=== PATIENT | male | born 1970 | race Caucasian/White ===

== ENCOUNTER 2020-02-07 07:00 | Day surgery (SDC) | payer OTHER ==
[~2020-02-07] VITALS: Ht 177.8 cm; Wt 93.0 kg
[~2020-02-07 07:00] MED LIST: CIPRO500 MG PO; CIPROFLOXACIN500 MG PO; FISH OIL 1,2001 EAC1 PO; FLAGYL250 MG PO; FLAGYL500 MG PO; PERCOCET 7.5-31 EACH PO; SIMVASTATIN40 MG PO
[2020-02-07] MEDS ORDERED: ULTRAM50 MG PO (10:17)
--- NOTE | 2020-02-08 10:17 | OR ---
[facility] [address], [place] [address] Signed DATE OF OPERATION: 02/07/2020 SURGEON: Lee Maier MD PREOPERATIVE DIAGNOSIS: Retained painful hardware, right knee, both tibia and femur. POSTOPERATIVE DIAGNOSIS: Retained painful hardware, right knee, both tibia and femur. PROCEDURE: Removal of retained hardware. ANESTHESIA: General. SPECIMENS/COMPLICATIONS: There were no specimens or complications. The hardware was processed and given to the patient per his request. WHAT WAS DONE: The patient was taken to the operating room. After anesthesia was induced and the airway secured, the patient was positioned, prepped and draped in a routine sterile fashion. We could palpate the screw on the tibial side. After confirming the localization with fluoroscopy, a small incision was made over the head of the screw. Skin was divided sharply. Subcutaneous tissues were bluntly spread. We did have to use a small osteotome to excavate the rest of the screw head and the washer. We were then able to back the screw out and remove the washer without any difficulty. The wound was irrigated and closed in a standard fashion. We then used fluoroscopy to localize the transfix pin over the proximal lateral femur. We then made a small incision over this area and divided the skin and subcutaneous tissue. We split about 1 cm of the iliotibial band and we were able to identify the end of the screw. Again, the transfix pin was covered with bone that had to be evacuated with a small osteotome. We then were able to grab it and removed it without difficulty. The wound was gently irrigated. The iliotibial band was closed and then routine wound closure was accomplished. A sterile dressing was applied, and he was taken to recovery room where he arrived in stable condition. Counts were correct and antibiotic protocols were followed. Electronically Signed By: LEE MAIER MD 02/08/20 1017 PATIENT NAME: NOMAN CARRASCO OPERATIVE REPORT DATE OF : 66 REPORT #: [id number] PHYSICIAN: LEE MAIER MD PCP: DENG KRAUSE MD REPORT IS CONFIDENTIAL AND NOT TO BE RELEASED WITHOUT AUTHORIZATION [address] [address] Signed Lee Maier MD WFB/MODL /[id number] Copies: ~ Electronically Signed By: LEE MAIER MD 02/08/20 1017 PATIENT NAME: DANILONOMAN OPERATIVE REPORT DATE OF : 66 REPORT #: [id number] PHYSICIAN: LEE MAIER MD PCP: DENG KRAUSE MD REPORT IS CONFIDENTIAL AND NOT TO BE RELEASED WITHOUT AUTHORIZATION
== END 2020-02-07 10:50 | disposition home or self-care (01) ==
LOC: DS 07:00 → OPS 07:00 → DS 11:00 → OPS 11:00
PROVIDERS: Orthopaedic Surgery
PROC: 0QPG04Z Removal of Internal Fixation Device from Right Tibia, Open Approach (ICD-10-PCS; 2020-02-07)
PROC: 0QP604Z Removal of Internal Fixation Device from Right Upper Femur, Open Approach (ICD-10-PCS; principal; 2020-02-07 08:30)
DX: T84.84XA Pain due to internal orthopedic prosthetic devices, implants and grafts, initial encounter (principal); E78.5 Hyperlipidemia, unspecified; G57.81 Other specified mononeuropathies of right lower limb; F12.90 Cannabis use, unspecified, uncomplicated
CPT/HCPCS: 01470; 73560; J0690; J1100; J1885; J2001; J2405; J2704; J3010; J7121